=== PATIENT | male | born 1970 | race Caucasian/White ===

== ENCOUNTER 2022-07-17 06:05 | Day surgery (SDC) | payer OTHER ==
[2022-07-15 16:54] VITALS: BMI 25.1
[2022-07-17] MEDS ORDERED: MIDAZOLAM HCL 2 MG/2 ML SINGLE DOSE VIAL ONE ×3 (06:46→09:08)
[2022-07-17] MEDS ORDERED: PROPOFOL 60 ML ONE (06:46)
[2022-07-17] MEDS ORDERED: BUPIVACAINE HCL/PF 0.5% (5 MG/ML) 30 ML VIAL IJ ONE (06:54)
[2022-07-17] MEDS ORDERED: DEXAMETHASONE SOD PHOSPHATE 10 MG/1 ML VIAL ONE (06:55)
[2022-07-17] MEDS ORDERED: LIDOCAINE 1%-EPI 1:100,000 30 ML MDV IJ ONE (08:07)
[2022-07-17] MEDS ORDERED: ONDANSETRON 4 MG/2 ML VIAL ONE (08:37)
[2022-07-17] MEDS ORDERED: KETOROLAC TROMETHAMINE 30 MG/1 ML VIAL ONE (08:37)
[2022-07-17] MEDS ORDERED: ceFAZolin SODIUM 1 GM VIAL ONE (08:37)
[2022-07-17] MEDS ORDERED: DEXAMETHASONE SOD PHOSPHATE 4 MG/1 ML VIAL ONE (08:37)
[2022-07-17] MEDS ORDERED: GLYCOPYRROLATE 0.2 MG/1 ML VIAL ONE (09:07)
[2022-07-17] MEDS ORDERED: PROPOFOL 20 ML ONE (09:17)
[2022-07-17] MEDS ORDERED: EPINEPHrine 1:1,000 1,000 MCG/ML ML ONE (09:28)
[2022-07-17] MEDS ORDERED: oxyCODONE HCL 5 MG TABLET PO PRN (10:12)
[2022-07-17] MEDS ORDERED: ONDANSETRON 4 MG/2 ML VIAL IVPUSH PRN (10:12)
[2022-07-17] MEDS ORDERED: ACETAMINOPHEN 1000 MG/100 ML BAG IVPB PRN (10:13)
[2022-07-17] MEDS ORDERED: LACTATED RINGERS SOLUTION 1,000 ML IV SCH (10:15)
[2022-07-17] MEDS ORDERED: FENTANYL CITRATE/PF 50 MCG/ML VIAL ONE ×4 (10:23→11:12)
[2022-07-17] MEDS ORDERED: oxyCODONE HCL 5 MG TABLET ONE ×2 (12:01→12:50)
[2022-07-17 12:17] VITALS: RESP 16; TEMP 97.8
[2022-07-17 13:34] VITALS: BP 112/76; PULSE 78
== END 2022-07-17 13:20 | disposition home or self-care (01) ==
LOC: FASU 06:05
PROVIDERS: ATTEND Orthopaedic Surgery Sports Medicine
PROC: 0RNK4ZZ Release Left Shoulder Joint, Percutaneous Endoscopic Approach (ICD-10-PCS; 2022-07-17)
PROC: 0LM24ZZ Reattachment of Left Shoulder Tendon, Percutaneous Endoscopic Approach (ICD-10-PCS; 2022-07-17)
PROC: 0LS44ZZ Reposition Left Upper Arm Tendon, Percutaneous Endoscopic Approach (ICD-10-PCS; principal; 2022-07-17 08:18)
DX: M75.22 Bicipital tendinitis, left shoulder (principal); M75.102 Unspecified rotator cuff tear or rupture of left shoulder, not specified as traumatic; M19.012 Primary osteoarthritis, left shoulder; M24.112 Other articular cartilage disorders, left shoulder
CPT/HCPCS: 94760; C1713; J1100